=== PATIENT | female | born 1960 | race Caucasian/White ===

== ENCOUNTER 2024-12-22 10:44 | Inpatient (IN) | payer MEDICARE ==
[~2024-12-22] VITALS: Ht 167.6 cm; Wt 70.9 kg
[2024-12-22] VITALS (12 sets, daily range): BP systolic 108; BP diastolic 43; PULSE 85–109; RESP 16–22; TEMP 98.1; O2SAT 88–98
[2024-12-22 11:54] LABS: BASOPHILS # (AUTO) 0.1 X10'3 (0-0.2); EOSINOPHILS # (AUTO) 1.6 X10'3 (0-0.9); EOSINOPHILS % (AUTO) 19.6 % (0-6); HEMATOCRIT 43.8 % (35.0-45.0); HEMOGLOBIN 14.9 g/dl (12.0-16.0); LYMPHOCYTES # (AUTO) 0.8 X10'3 (1.1-4.8); LYMPHOCYTES % (AUTO) 9.3 % (21-51); MEAN CORPUSCULAR HEMOGLOBIN 33.1 PG (27.0-31.0); MEAN CORPUSCULAR VOLUME 97.3 FL (78-98); MEAN PLATELET VOLUME 7.4 FL (7.4-10.4); MONOCYTES # (AUTO) 0.8 X10'3 (0-0.9); MONOCYTES % (AUTO) 10.2 % (2-12); NEUTROPHILS % (AUTO) 59.9 % (42-75); PLATELET COUNT 400 X10'3 (140-440); RED BLOOD COUNT 4.51 X10'6 (4.20-5.60); RED CELL DISTRIBUTION WIDTH 14.1 % (11.5-14.5); WHITE BLOOD COUNT 8.3 X10'3 (4.5-11.0)
[2024-12-22] MEDS: normal saline 1000ml 1,000 ML IV ONE (11:56)
[2024-12-22] MEDS: diphenhydrAMINE 50 mg/ml inj IV ONE (11:58)
[2024-12-22 12:04] LABS: ALANINE AMINOTRANSFERASE 84 U/L (12-78); ALBUMIN 3.4 G/DL (3.4-5.0); ALBUMIN/GLOBULIN RATIO 1.1 (1.1-1.5); ALKALINE PHOSPHATASE 118 IU/L (46-116); ANION GAP 4 (8-16); ASPARTATE AMINO TRANSFERASE 71 U/L (10-37); BILIRUBIN,TOTAL 0.4 MG/DL (0.1-1.0); BLOOD UREA NITROGEN 24 MG/DL (7-18); BUN/CREATININE RATIO 24.5 (10.0-20.0); CALCIUM 8.8 MG/DL (8.5-10.1); CHLORIDE 103 MMOL/L (99-107); CREATININE 0.98 MG/DL (0.40-0.90); GLUCOSE 311 MG/DL (70-104); POTASSIUM 4.5 MMOL/L (3.5-5.1); SODIUM 139 MMOL/L (135-145); TOTAL CARBON DIOXIDE 31.7 MMOL/L (24-32); TOTAL PROTEIN 6.4 G/DL (6.4-8.2); eCRCL 54 ML/MIN; eGFR 57 ML/MIN
[2024-12-22 12:24] LABS: BILIRUBIN,URINE NEGATIVE (Neg); CLARITY,URINE CLEAR (Clear); COLOR,URINE YELLOW (Yellow); GLUCOSE, URINE >=1000 mg/dl (Neg); KETONES,URINE 15 mg/dl (Neg); LEUKOCYTE ESTERASE ,URINE NEGATIVE (Neg); NITRITES, URINE NEGATIVE (Neg); OCCULT BLOOD,URINE NEGATIVE (Neg); PROTEIN,URINE NEGATIVE (Neg); UROBILINOGEN,URINE 0.2 E.U/dL (0.2-1.0)
[2024-12-22 12:29] LABS: UA COLLECTION TYPE VOIDED
[2024-12-22] MEDS ORDERED: LORazepam 2 mg/ml vial IV ONE (12:35)
[2024-12-22 12:38] LABS: MUCUS STRANDS NONE SEEN /LPF (Neg); SQUAMOUS EPITHELIAL CELL,UR MODERATE /LPF (FEW)
[2024-12-22 12:39] LABS: BACTERIA,URINE 1+ /HPF (Neg)
[2024-12-22 12:40] LABS: RBC,URINE NONE SEEN /HPF (0-2); WBC,URINE 0-4 /HPF (0-4)
--- NOTE | 2024-12-22 12:46 | ELECTROCARDIOGRAPH REPORT ---
[facility] Test Date: 2024-12-22 Test Time: 12:44:59 Pat Name: DYAN ARELLANO Department: [facility]- Patient ID: [id number] Room: [place] [address] Gender: F Presentation Team Member: : 1960 Requested By: ALEX DUGAN Order Number: [id number] Reading MD: Dr. Rodo Benjamin Measurements Intervals [place] Rate: 77 P: 74 [place]: 157 QRS: 86 QRSD: 107 T: 73 QT: 410 QTc: 465 Interpretive Statements Sinus rhythm Borderline right axis deviation Probable left ventricular hypertrophy Nonspecific T abnrm, anterolateral leads Electronically Signed On 12-26-2024 9:30:[address] Rodo Benjamin Please click the below link to view image of tracing.
[2024-12-22] MEDS: ipratropium/albuterol 3ml nebule NEB ONE (12:50)
--- NOTE | 2024-12-22 13:11 | RADIOLOGY REPORT ---
CHEST RADIOGRAPH Indication: SOB Technique: Single frontal view of the chest was obtained Comparison: None FINDINGS: The cardiac silhouette is unremarkable. The lungs demonstrate perihilar airspace opacities. The pulmo nary vasculature is prominent. There is no pleural effusion.. There is no pneumothorax. IMPRESSION: 1. As above
[2024-12-22] MEDS: diazepam inj 5 MG/ML inj. IV ONE (13:23)
[2024-12-22] MEDS: methylPREDNISolone sod succ/PF 40mg inj. IV SCH ×2 (13:23→20:21)
[2024-12-22] MEDS ORDERED: ziprasidone IM 20mg inj **IM only IM ONE (13:40)
[2024-12-22] MEDS: albuterol 2.5 MG/3 ML nebule NEB ONE (13:53)
--- NOTE | 2024-12-22 14:26 | Physician Documentation ---
History of Present Illness ~ Chief Complaint: Rash Stated Complaint: RASH Time Seen by MD: 11:06 Primary Medical Doctor: Doctor in [facility] Patient initially presented with a rash but has also been short of breath. He was said that she was had this systemic urticarial rash for a month. It is very pruritic she tried a course of steroids it did not really help the rash much in his increased her blood glucose. She also has a history of COPD. She was had a lot of wheezing recently. She denies chest pain hemoptysis no fever cough. No lower extremity edema. Medication Reconciliation Allergies: Coded Allergies: No Known Allergies (Unverified , 12/22/24) Past Medical History Smoking Status: Current every day smoker Physical Exam Vital Signs: Temperature: 98.1, Source: Oral, Heart Rate: 88, Respiratory Rate: 22, BP: 123/57, Pulse Oximetry: 98, Weight: 70.900 Oxygen Flow Rate: 2.0 Physical Exam General: Awake and Alert, no acute distress. HEENT: Conjunctiva pink, Sclera clear, Mucus Membranes moist. Neck: Supple without masses and tenderness. Resp: Unlabored. Mild wheezing she was very constricted. Heart: Regular Rate and rhythm, normal S1 and S2 without murmur, rub or gallop. Abdomen: Soft and non tender no organomegaly Extremities: No cyanosis,clubbing or edema. Skin: Warm and Dry. Systemic urticaria no signs of anaphylaxis. Neuro: GCS 15; no focal deficits Progress Results/Orders Results/Orders Orders - ALEX DUGAN MD Chest,Single View (12/22/24 12:42) Svn Treatment (12/22/24 12:38) Svn Treatment (12/22/24 13:36) Doxycycline Inj (Vibramycin Inj) (12/22/24 20:00) Cont Nebulizer Treatment (12/22/24 14:19) Albuterol 2.5mg/3ml Nebule (Proventil 2. (12/22/24 14:20) Completed Orders - ALEX DUGAN MD Cbc/Diff (12/22/24 11:23) CMP (12/22/24 11:23) Normal Saline 1000ml (Sodium Chloride 10 (12/22/24 11:25) Diphenhydramine Inj (Benadryl Inj.) (12/22/24 11:25) Ua W/Microscopic, Cult If Ind (12/22/24 11:41) Methylprednisolone Sod Succ/Pf (Solu-Med (12/22/24 12:35) Electrocardiogram (12/22/24 ) Chest,Single View (12/22/24 12:42) Ipratropium/Albuterol Nebule (Ipratrop/A (12/22/24 12:40) Hs Troponin I W Calculations (12/22/24 11:34) Diazepam Inj (Valium Inj) (12/22/24 13:10) Albuterol 2.5mg/3ml Nebule (Proventil 2. (12/22/24 13:40) Medications Received in ER Medications (Trade) Dose Ordered Sig/Pamela Route PRN Reason Start Time Stop Time Status Last Admin Dose Admin Sodium Chloride 1,000 ml @ 1,000 mls/hr ONCE ONCE IV 12/22/24 11:25 12/22/24 12:24 DC 12/22/24 11:56 1,000 MLS/HR (Benadryl inj.) 25 mg ONCE ONCE IV 12/22/24 11:25 12/22/24 11:26 DC 12/22/24 11:58 25 MG (Solu-Medrol 40mg inj.) 125 mg ONCE IV 12/22/24 12:35 12/22/24 14:15 DC 12/22/24 13:23 160 MG (ipratrop/ albuterol 0.5-3(2.5) MG/3ml nebule) 3 ml ONCE ONCE NEB 12/22/24 12:40 12/22/24 12:41 DC 12/22/24 12:50 3 ML (Valium inj) 5 mg ONCE ONCE IV 12/22/24 13:10 12/22/24 13:11 DC 12/22/24 13:23 5 MG (Proventil 2.5 MG/3ML nebule) 5 mg ONCE ONCE NEB 12/22/24 13:40 12/22/24 13:42 DC 12/22/24 13:53 5 MG Vital Signs 12/22/24 12/22/24 12/22/24 12/22/24 11:01 12:51 12:57 13:37 Temp 98.1 Pulse 98 86 99 88 Resp 16 18 18 16 B/P (MAP) 132/58 123/57 (79) Pulse Ox 93 90 98 90 O2 Delivery Room Air* Room Air* O2 Flow Rate 0 0 0 0 FiO2 21 21 12/22/24 12/22/24 12/22/24 13:38 13:54 14:04 Pulse 85 88 Resp 20 22 Pulse Ox 90 93 98 O2 Delivery Nasal Cannula* Nasal Cannula* O2 Flow Rate 2.0 2 2 FiO2 28 28 Laboratory Tests Test 12/22/24 11:34 12/22/24 11:41 White Blood Count 8.3 Red Blood Count 4.51 Hemoglobin 14.9 Hematocrit 43.8 Mean Corpuscular Volume 97.3 Mean Corpuscular Hemoglobin 33.1 H Mean Corpuscular Hemoglobin Concent 34.0 Red Cell Distribution Width 14.1 Platelet Count 400 Mean Platelet Volume 7.4 Neutrophils (%) (Auto) 59.9 Lymphocytes (%) (Auto) 9.3 L Monocytes (%) (Auto) 10.2 Eosinophils (%) (Auto) 19.6 H Basophils (%) (Auto) 1.0 Neutrophils # (Auto) 5.0 Lymphocytes # (Auto) 0.8 L Monocytes # (Auto) 0.8 Eosinophils # (Auto) 1.6 H Basophils # (Auto) 0.1 CBC Comment Sodium Level 139 Potassium Level 4.5 Chloride Level 103 Carbon Dioxide Level 31.7 Anion Gap 4 L Blood Urea Nitrogen 24 H Creatinine 0.98 H Estimated GFR/1.73 m2 57 BUN/Creatinine Ratio 24.5 H Glucose Level 311 H Calcium Level 8.8 Total Bilirubin 0.4 Aspartate Amino Transf (AST/SGOT) 71 H Alanine Aminotransferase (ALT/SGPT) 84 H Alkaline Phosphatase 118 H Troponin I High Sensitivity 26 Total Protein 6.4 Albumin 3.4 Globulin 3.0 Albumin/Globulin Ratio 1.1 Chemistry Comments Urine Specimen Description Voided Urine Color Yellow Urine Clarity Clear Urine pH 6.0 Urine Specific [place] 1.015 Urine Protein Negative Urine Glucose (UA) >=1000 H Urine Ketones 15 H Urine Occult Blood Negative Urine Nitrite Negative Urine Bilirubin Negative Urine Urobilinogen 0.2 Urine Leukocyte Esterase Negative Urine RBC None seen Urine WBC 0-4 Urine Squamous Epithelial Cells Moderate Urine Bacteria 1+ Urine Mucus None seen Urine Culture Indicated Not ind Volume Urine Centrifuged 10 ml Urine Comment Medical Decision Making Findings EKGs interpreted by me shows a sinus rhythm at 77 beats per minute axis intervals and ST segments are normal borderline LVH no ST elevation or depression. Patient has a systemic urticarial rash as he was said intermittently for a month. It was very pruritic and more pronounced today. She he was not aware of any exposures to any allergens. No changes in her medications. She has been a lot of stress recently. She was given IV Benadryl and Solu-Medrol for the rash she was still he was complaining that the rash he was quite pruritic. She was tearful and even anxious so she was given IV Valium. She was also here with shortness of breaths and on exam she was very diminished. She was hypoxic on room air. This was worse after she was received IV Benadryl. He was little bit worse after that after the IV lorazepam. Her wheezing increased after every neb treatment indicating improvement in aeration. She was received a DuoNeb treatment followed by a 5 mg neb treatment. Ordered admission patient he was to receive a 10 mg over long continuous neb treatment prior to admission. Departure Disposition: HOME / SELF CARE / HOMELESS Impression: Primary Impression: Urticaria Additional Impression: COPD exacerbation Condition: Stable Referrals: NO PRIMARY CARE PROVIDER (PCP) Education Educated: Patient Educated regarding: diagnosis, treatment, prognosis, need for follow up Critical Care Note Critical Care Note This patient had a high probability of sudden, clinically significant deterioration, which required the highest level of physician preparedness to intervene urgently. The patient required and I delivered critical care from time of arrival until disposition. Critical care time was separate from procedural such as intubation or central line placement or cardioversion. Critical care included initial assessment of the seriously ill patient, initiation of diagnostic studies and treatment, management of life-threatening and/or end organ supporting interventions that required frequent physician assessment, and phone consultation with other providers as outlined in the progress notes. Spent with family or surrogates is included only if the patient was not capable of providing the necessary information or participating in medical decision-making. Total critical care time: 35 minutes Signature Scribe Signature: no scribe Attestation: no scribALEX Henderson MD Dec 22, 2024 14:26
[2024-12-22] MEDS ORDERED: LEVO50TA8 PO (14:38)
[2024-12-22] MEDS ORDERED: INSU100I8 SQ (14:38)
[2024-12-22] MEDS ORDERED: LISI2.5T14 PO (14:38)
[2024-12-22] MEDS ORDERED: VENL100T4 PO (14:38)
[2024-12-22] MEDS ORDERED: FLUT1BLS4 INH (14:38)
[2024-12-22] MEDS ORDERED: HYDR25TA4 PO (14:38)
[2024-12-22] MEDS ORDERED: LANTUS SQ (14:38)
[2024-12-22] MEDS ORDERED: HYDR-3965 PO (14:38)
[2024-12-22] MEDS: doxycycline inj 100 MG in normal saline 100ml IV soln 100 ML IV SCH (14:51)
[2024-12-22] MEDS: albuterol 2.5 MG/3 ML nebule CONTNEB PRN (15:15)
[2024-12-22] MEDS ORDERED: acetaminophen 325mg tablet PO PRN (15:40)
[2024-12-22] MEDS ORDERED: magnesium sulf-water 4G/100mL 100 ML IV PRN (15:40)
[2024-12-22] MEDS ORDERED: albuterol 2.5 MG/3 ML nebule NEB PRN (15:40)
[2024-12-22] MEDS ORDERED: ondansetron/PF 4mg/2ml inj IV PRN (15:40)
[2024-12-22] MEDS ORDERED: potassium Cl 40MEQ/1/2NS 520ml 520 ML IV PRN (15:40)
[2024-12-22] MEDS ORDERED: magnesium sulf-water 2g/50mL 50 ML IV PRN (15:40)
[2024-12-22] MEDS ORDERED: mag hydrox/Alum hydrox/simeth 30ml oral suspension PO PRN (15:40)
[2024-12-22] MEDS ORDERED: magnesium hydroxide 30ml (MOM) UD suspension PO PRN (15:40)
[2024-12-22] MEDS ORDERED: potassium Cl 20 mEq SR tablet PO PRN ×2 (15:40)
[2024-12-22] MEDS ORDERED: dextrose 50%-water 50ml dispensing syringe IV PRN (16:40)
[2024-12-22] MEDS ORDERED: DEXTROSE 15 GM of carb/4 tabs (each vial/BOTTLE has 4 tablets) PO PRN ×2 (16:40)
[2024-12-22] MEDS ORDERED: glucagon, human recombinant 1mg kit SUBCUT PRN (16:40)
[2024-12-22] MEDS ORDERED: nicotine 21mg patch - 24 hr TD ONE (16:40)
--- NOTE | 2024-12-22 16:49 | HISTORY AND PHYSICAL ---
History & Physical Providers to CC ~ History of Present Illness Reason for Admit\Complaint: COPD exacerbation/ acute respiratory failure History of Present Illness This is a 64-year-old female who presents to the ED with history of COPD not on oxygen at home has noticed she has been more short of breath x3 months however significantly more so over the past few days. Patient has a productive cough as well and intermittent fevers. The patient also states that she has a systemic rash in his itchy and it was taken steroids for the rash without any help and including hydrocortisone cream which made the rash worse and dried her skin out. Allergies: Coded Allergies: No Known Allergies (Unverified , 12/22/24) Home Medications Home Medications Active Reported Trelegy Ellipta 100-62.5-25 (Fluticasone/Umeclidin/Vilanter) 100-62.5 Blst.w.dev 1 Puffs INH DAILY Humalog (Insulin Lispro) 100 Unit/Ml Insuln.pen SQ ACHS Lantus* (Insulin Glargine) 100 Unit/1 Ml Vial SQ [place] 5/325 MG (Acetaminophen/Hydrocodone Bitart) 5 Mg/325 Mg Tablet 1 Tab PO QID PRN Venlafaxine Hcl 100 Mg Tablet 1 Tab PO BID Levothyroxine Sodium 50 Mcg Tablet 1 Tab PO DAILY Hydrochlorothiazide 25 Mg Tablet 1 Tab PO DAILY Lisinopril 2.5 Mg Tablet 1 Tab PO DAILY Past Medical History Past Medical History COPD, diabetes mellitus type 1 Past Surgical History Surgical History Comment Lumbar spine surgery Family History Family History: FH: colon cancer FATHER FH: congestive heart failure MOTHER FH: diabetes mellitus sisters sisters FH: kidney cancer FATHER FH: kidney failure MOTHER Past Social History Social History Comment Smokes at least half a pack of cigarettes a day, does not drink alcohol or use illicit drugs. Full code status, however does not want to remain on life support for an extended period of time ROS ROS Except for positives in the HPI the rest of the 14 point review systems is negative Exam Vitals: Vital Signs Date Time Temp Pulse Resp B/P (MAP) Pulse Ox O2 Delivery O2 Flow Rate FiO2 12/22/24 16:22 107 22 91 12/22/24 16:11 121/56 (77) 0 12/22/24 14:04 Nasal Cannula* 28 12/22/24 11:01 98.1 General: Gen. No acute distress alert and oriented 4 Lungs coarse breath sounds at the bases bilaterally Heart normal sinus rhythm no murmurs rubs or clicks noted Abdomen soft nontender bowel sounds are normoactive Lower extremities no clubbing cyanosis, nor edema appreciated bilaterally Skin faint lacy erythematous rash diffusely scattered most prominent on her back Diagnostic Data Last Recorded Lab Results: 12/22/24 1134 12/22/24 1134 Counseling Services Smoking & Tobacco Cessation: > 10 Minutes Advance Care Planning Advanced Care plannin - 30 Minutes Problems: (1) COPD exacerbation Status: Acute Additional Plan # acute exacerbation of chronic COPD- IV Solu-Medrol, scheduled DuoNeb and p.r.n. albuterol nebs as well as scheduled budesonide neb and an incentive spirometer and a PEP with oscillitation, doxycycline p.o. # acute respiratory failure- secondary to COPD respiratory therapies ordered and keep SaO2 above 88% # insulin-dependent diabetes mellitus- hemoglobin A1c is ordered, insulin glargine and a sliding scale insulin is ordered # systemic rash possibly secondary to urticaria- I started the patient on Singulair I have recommended the patient follow up and get a biopsy in the outpatient setting since his rash has been going on for months. # Tobacco abuse-I spent 12 minutes discussing smoking cessation with the patient including the risk of continuing smoke: Lung cancer, stroke, heart attack, poor wound healing, increased in facial wrinkling, cigarette smoke also leads a foul smell on clothing and fabrics, risk of MRSA skin infections. The expense of smoking cigarettes and how cigarettes have been scientifically engineered to be as addictive as humanly possible. The patient has accepted a 21 mg nicotine patch. # DVT prophylaxis SCDs and SQ Lovenox I spent a total of 18 minutes on reviewing various resuscitative measures/ ACP with the patient at the time of admission. The patient has decided on a full code status however does not want to remain on life support for an extended period of time. Date of Service: Dec 22, 2024 Billing Provider: TOBY PINA DO Common Visit Codes: [id number] INP/OBS CARE (HIGH) Secondary Visit Codes: [id number] CARE PLAN 30 MINUTES TOBY PINA DO Dec 22, 2024 16:49
--- NOTE | 2024-12-22 16:50 | Visit Coding Note ---
Date of Service: Dec 22, 2024 Billing Provider: TOBY PINA DO Common Visit Codes: [id number] INP/OBS CARE (HIGH) Secondary Visit Codes: [id number] CHNG SMOKING >10MIN, [id number] CARE PLAN 30 MINUTES TOBY PINA DO Dec 22, 2024 16:50
[2024-12-22 17:10] LABS: HEMOGLOBIN A1C 8.5 % (4.5-6.2)
[2024-12-22] MEDS: normal saline 1000ml 1,000 ML IV SCH (17:15)
[2024-12-22] MEDS: nicotine 21mg patch - 24 hr TD ONE (17:16)
[2024-12-22] MEDS: INSULIN LISPRO 100 UNIT/ML INSULN.PEN MULTI-DOSE SQ SCH (18:25)
[2024-12-22] MEDS: budesonide 0.5mg/2ml UD nebule IH SCH (19:43)
[2024-12-22] MEDS: ipratropium/albuterol 3ml nebule NEB SCH (19:44)
[2024-12-22] MEDS: K and/or MAG REPLACEMENT MC SCH (20:00)
[2024-12-22] MEDS ORDERED: doxycycline inj 100 MG in normal saline 100ml IV soln 100 ML IV SCH (20:00)
[2024-12-22] MEDS: DOXYCYCLINE 100MG CAPSULE PO SCH (20:20)
[2024-12-22] MEDS: docusate sod 100mg capsule PO SCH (20:20)
[2024-12-22] MEDS: enoxaparin 40mg/0.4ml syringe SQ SCH (20:21)
[2024-12-22] MEDS ORDERED: insulin glargine (Lantus) pen - multi-dose SQ SCH (21:00)
[2024-12-22] MEDS: insulin glargine (Lantus) pen - multi-dose SQ SCH (21:56)
[2024-12-22] MEDS: diphenhydrAMINE 25mg capsule PO PRN (22:24)
[2024-12-22] MEDS: insulin Lispro (HumaLOG) vial - multi-dose SQ ONE (22:26)
[2024-12-23] VITALS (17 sets, daily range): BP systolic 114–147; BP diastolic 45–65; PULSE 60–98; RESP 14–20; TEMP 97.9–98.7; O2SAT 93–99
[2024-12-23] MEDS: hydrocortisone 1% cream 28gm TP SCH (00:03)
[2024-12-23 05:50] LABS: BASOPHILS % (AUTO) 0.3 % (0-1); EOSINOPHILS % (AUTO) 0 % (0-6); HEMATOCRIT 40.6 % (35.0-45.0); HEMOGLOBIN 13.5 g/dl (12.0-16.0); LYMPHOCYTES # (AUTO) 0.7 X10'3 (1.1-4.8); LYMPHOCYTES % (AUTO) 6.2 % (21-51); MEAN CORPUSCULAR HEMOGLOBIN 32.3 PG (27.0-31.0); MEAN CORPUSCULAR HGB CONC 33.2 g/dL (33.0-36.5); MEAN CORPUSCULAR VOLUME 97.3 FL (78-98); MEAN PLATELET VOLUME 8.2 FL (7.4-10.4); MONOCYTES # (AUTO) 0.5 X10'3 (0-0.9); MONOCYTES % (AUTO) 4.8 % (2-12); NEUTROPHILS # (AUTO) 10.1 X10'3 (1.8-7.7); NEUTROPHILS % (AUTO) 88.7 % (42-75); PLATELET COUNT 393 X10'3 (140-440); RED BLOOD COUNT 4.18 X10'6 (4.20-5.60); RED CELL DISTRIBUTION WIDTH 14.3 % (11.5-14.5); WHITE BLOOD COUNT 11.3 X10'3 (4.5-11.0)
[2024-12-23 06:03] LABS: ALANINE AMINOTRANSFERASE 72 U/L (12-78); ALBUMIN 3.2 G/DL (3.4-5.0); ALBUMIN/GLOBULIN RATIO 1.1 (1.1-1.5); ALKALINE PHOSPHATASE 89 IU/L (46-116); ANION GAP 5 (8-16); ASPARTATE AMINO TRANSFERASE 40 U/L (10-37); BILIRUBIN,TOTAL 0.4 MG/DL (0.1-1.0); BLOOD UREA NITROGEN 26 MG/DL (7-18); BUN/CREATININE RATIO 28.6 (10.0-20.0); CALCIUM 8.3 MG/DL (8.5-10.1); CHLORIDE 103 MMOL/L (99-107); CREATININE 0.91 MG/DL (0.40-0.90); GLUCOSE 302 MG/DL (70-104); POTASSIUM 4.4 MMOL/L (3.5-5.1); SODIUM 139 MMOL/L (135-145); TOTAL CARBON DIOXIDE 31.4 MMOL/L (24-32); TOTAL PROTEIN 6.1 G/DL (6.4-8.2); eCRCL 58 ML/MIN; eGFR 62 ML/MIN
[2024-12-23] MEDS: montelukast 10mg tablet PO SCH (09:19)
[2024-12-23] MEDS: INSULIN LISPRO 100 UNIT/ML INSULN.PEN MULTI-DOSE SQ SCH ×2 (09:22→11:24)
[2024-12-23] MEDS ORDERED: hydrOXYzine 25 MG tablet PO PRN (11:25)
[2024-12-23] MEDS: dextrose 50%-water 50ml dispensing syringe IV PRN (12:30)
[2024-12-23] MEDS ORDERED: INSULIN LISPRO 100 UNIT/ML INSULN.PEN MULTI-DOSE SQ SCH (13:00)
--- NOTE | 2024-12-23 18:27 | PROGRESS NOTE ---
Daily Progress Note Providers to CC ~ Antibiotic Timeout Antibiotic Ordered?: Yes Subjective The patient's respiratory status has improved significantly and by this afternoon the patient has been titrated off of oxygen, the patient had significantly elevated blood glucose this morning and I have markedly increased her sliding scale and increased her PC insulin to 12 units which the patient became hypoglycemic prior to lunch thus I have back down to 7 units PC. The patient has no other complaints Objective Vital Signs Date Time Temp Pulse Resp B/P (MAP) Pulse Ox O2 Delivery O2 Flow Rate FiO2 12/23/24 14:39 90 18 Room Air 0.0 12/23/24 14:29 93 21 12/23/24 11:47 114/45 (68) 12/23/24 06:00 98.7 Result Diagram: 12/23/2443112/23/24431 Gen. No acute distress alert and oriented 4 Lungs clear to ascultation bilaterally, no wheezes rales or rhonchi appreciated Heart normal sinus rhythm no murmurs rubs or clicks noted Abdomen soft nontender bowel sounds are normoactive Lower extremities no clubbing cyanosis, nor edema appreciated bilaterally Problem\Assessment\Plan Problems/Diagnosis: (1) COPD exacerbation # acute exacerbation of chronic COPD- IV Solu-Medrol, scheduled DuoNeb and p.r.n. albuterol nebs as well as scheduled budesonide neb and an incentive spirometer and a PEP with oscillitation, doxycycline p.o. 12/23 significantly improved anticipate discharge in the a.m. # acute respiratory failure- secondary to COPD respiratory therapies ordered and keep SaO2 above 88% 12/23 titrated off of oxygen this afternoon # insulin-dependent diabetes mellitus- hemoglobin A1c is ordered, insulin glargine and a sliding scale insulin is ordered 12/23 were dying in the patient's insulin I have markedly increased the patient was sliding scale however the patient became hypoglycemic after receiving a PC insulin after breakfast which I had increased her PC dosing to 12 units a.c. and HS now I have back down to 7 units. # systemic rash possibly secondary to urticaria- I started the patient on Singulair I have recommended the patient follow up and get a biopsy in the outpatient setting since his rash has been going on for months. # Tobacco abuse-I spent 12 minutes discussing smoking cessation with the patient including the risk of continuing smoke: Lung cancer, stroke, heart attack, poor wound healing, increased in facial wrinkling, cigarette smoke also leads a foul smell on clothing and fabrics, risk of MRSA skin infections. The expense of smoking cigarettes and how cigarettes have been scientifically engineered to be as addictive as humanly possible. The patient has accepted a 21 mg nicotine patch. # DVT prophylaxis SCDs and SQ Lovenox Disposition: Anticipate discharge in the a.m. Date of Service: Dec 23, 2024 Billing Provider: TOBY PINA DO Common Visit Codes: [id number] INP/OBS CARE(HIGH) TOBY PINA DO Dec 23, 2024 18:27
[2024-12-23] MEDS: venlafaxine 25mg tablet PO SCH (21:35)
[2024-12-23] MEDS: temazepam 15mg capsule PO PRN (21:56)
[2024-12-24] VITALS (9 sets, daily range): BP systolic 150–151; BP diastolic 69–72; PULSE 74–88; RESP 16–24; TEMP 98.1–98.4; O2SAT 94–98
[2024-12-24 06:34] LABS: BASOPHILS % (AUTO) 0.2 % (0-1); EOSINOPHILS % (AUTO) 0 % (0-6); HEMATOCRIT 39.6 % (35.0-45.0); HEMOGLOBIN 12.9 g/dl (12.0-16.0); LYMPHOCYTES # (AUTO) 1.3 X10'3 (1.1-4.8); LYMPHOCYTES % (AUTO) 8.2 % (21-51); MEAN CORPUSCULAR HEMOGLOBIN 31.9 PG (27.0-31.0); MEAN CORPUSCULAR HGB CONC 32.5 g/dL (33.0-36.5); MEAN CORPUSCULAR VOLUME 98.3 FL (78-98); MONOCYTES # (AUTO) 0.9 X10'3 (0-0.9); MONOCYTES % (AUTO) 5.5 % (2-12); NEUTROPHILS # (AUTO) 13.6 X10'3 (1.8-7.7); NEUTROPHILS % (AUTO) 86.1 % (42-75); PLATELET COUNT 385 X10'3 (140-440); RED BLOOD COUNT 4.03 X10'6 (4.20-5.60); RED CELL DISTRIBUTION WIDTH 14.7 % (11.5-14.5); WHITE BLOOD COUNT 15.9 X10'3 (4.5-11.0)
[2024-12-24 06:56] LABS: ALANINE AMINOTRANSFERASE 135 U/L (12-78); ALBUMIN 2.9 G/DL (3.4-5.0); ALKALINE PHOSPHATASE 92 IU/L (46-116); ANION GAP 6 (8-16); ASPARTATE AMINO TRANSFERASE 126 U/L (10-37); BILIRUBIN,TOTAL 0.4 MG/DL (0.1-1.0); BLOOD UREA NITROGEN 30 MG/DL (7-18); BUN/CREATININE RATIO 44.8 (10.0-20.0); CALCIUM 8.1 MG/DL (8.5-10.1); CHLORIDE 105 MMOL/L (99-107); CREATININE 0.67 MG/DL (0.40-0.90); GLUCOSE 284 MG/DL (70-104); MAGNESIUM 2.2 MG/DL (1.5-2.4); SODIUM 141 MMOL/L (135-145); TOTAL CARBON DIOXIDE 29.8 MMOL/L (24-32); TOTAL PROTEIN 5.7 G/DL (6.4-8.2); eCRCL 78 ML/MIN; eGFR 88 ML/MIN
[2024-12-24] MEDS: levoTHYROXINE 25mcg tablet PO SCH (08:14)
[2024-12-24] MEDS: lisinopril 2.5mg tablet PO SCH (08:15)
[2024-12-24] MEDS ORDERED: PRED20TA PO (11:11)
[2024-12-24] MEDS ORDERED: MONT-40 PO (11:11)
[2024-12-24] MEDS ORDERED: VENL100T4 PO (11:11)
[2024-12-24] MEDS ORDERED: FLUT1BLS4 INH (11:11)
[2024-12-24] MEDS ORDERED: LEVO50TA8 PO (11:11)
[2024-12-24] MEDS ORDERED: HYDR25TA4 PO (11:11)
[2024-12-24] MEDS ORDERED: LISI2.5T14 PO (11:11)
[2024-12-24] MEDS ORDERED: TEMA15CA5 PO (11:11)
[2024-12-24] MEDS ORDERED: DOXY-224 PO (11:11)
[2024-12-24] MEDS: INSULIN LISPRO 100 UNIT/ML INSULN.PEN MULTI-DOSE SQ ONE ×2 (12:28→13:50)
[2024-12-24] MEDS ORDERED: INSULIN LISPRO 100 UNIT/ML INSULN.PEN MULTI-DOSE SQ ONE (13:56)
[2024-12-24] MEDS ORDERED: NICO1PAT36 TOP (19:51)
--- NOTE | 2024-12-24 19:56 | DISCHARGE SUMMARY ---
Discharge Summary Providers to CC ~ Discharge Summary Admission Diagnosis: COPD exacerbation with a acute respiratory failure Hospital Course DATE OF ADMISSION: 12/22/2024 DATE OF DISCHARGE: 12/24/2024 Discharge Diagnosis\Comment: Acute exacerbation of chronic COPD, acute respiratory failure, insulin-dependent diabetes mellitus, urticaria, tobacco use disorder Operations\Procedures: None Consultants: None Complications: None Condition on DC: Stable New Medications: Prednisone* (Prednisone*) 20 Mg Tablet 2 TAB PO DAILY, #15 TAB 2 tabs daily x 5 days - then 1 tab daily x 5 days Doxycycline Hyclate (Doxycycline Hyclate) 100 Mg Capsule 100 MG PO BID, #8 CAP Montelukast Sodium (Montelukast Sodium) 10 Mg Tablet 10 MG PO DAILY, #30 TAB Temazepam (Restoril) 15 Mg Capsule 15 MG PO HS PRN for sleep, #30 CAP Continued Medications: Fluticasone/Umeclidin/Vilanter (Trelegy Ellipta 100-62.5-25) 100-62.5 Blst.w.dev 1 PUFFS INH DAILY, #1 INHALER (This prescription has been renewed) Hydrochlorothiazide (Hydrochlorothiazide) 25 Mg Tablet 1 TAB PO DAILY, #30 TAB (This prescription has been renewed) Hydrocodone Bit/Acetaminophen 5/325 MG ([place] 5/325 MG) 5 Mg/325 Mg Tablet 1 TAB PO QID PRN for pain Insulin Glargine,Hum.rec.anlog* (Lantus*) 100 Unit/1 Ml Vial SQ Insulin Lispro (Humalog) 100 Unit/Ml Insuln.pen SQ ACHS Levothyroxine Sodium (Levothyroxine Sodium) 50 Mcg Tablet 1 TAB PO DAILY, #30 TAB (This prescription has been renewed) Lisinopril (Lisinopril) 2.5 Mg Tablet 1 TAB PO DAILY, #30 TAB (This prescription has been renewed) Venlafaxine Hcl (Venlafaxine Hcl) 100 Mg Tablet 1 TAB PO BID, #60 TAB (This prescription has been renewed) Discharge Summary: I admitted the patient with the following HPI:This is a 64-year-old female who presents to the ED with history of COPD not on oxygen at home has noticed she has been more short of breath x3 months however significantly more so over the past few days. Patient has a productive cough as well and intermittent fevers. The patient also states that she has a systemic rash in his itchy and it was taken steroids for the rash without any help and including hydrocortisone cream which made the rash worse and dried her skin out. The patient was breathing did improve with IV Solu-Medrol and nebulizer treatments as well as p.o. doxycycline I also started the patient on Singulair for her urticaria rash- The patient did require oxygen however for discharge and the patient qualified for oxygen. Patient has a insulin-dependent diabetes mellitus and was a brittle diabetic her blood sugars were significantly more uncontrolled due to steroid use- patient was blood sugars spiked on the day of admission to 464 and then started to improve I significantly increased the amount of units in the sliding scale and by midmorning patient's blood sugar on the was 120 however she did not receive any more insulin and an dropped her sugar 244 and the patient received g lucose which then her blood sugar did improve however by the mid afternoon was in the 260s and increased to 340 on the evening of the the patient received her home dose of Lantus in the morning was blood sugar was 334 this then increased to 394 and the patient received 21 units of short-acting insulin there was slight increased to 422 the patient received another 15 units her blood glucose then downtrended to 370 followed by 290 I had ordered 12 units of insulin the patient was concerned she would usually only give 6 units of insulin for this blood glucose level thus we decided on 9 units and the patient went home and was able to be discharged. I did talk with the patient about smoking cessation on the day discharge and I just sent a prescription for nicotine patch I did recommend the patient do not smoke while on a nicotine patch as this could cause her to have a significant e levated blood pressure and she could have a stroke. Gen. No acute distress alert and oriented 4 Lungs clear to ascultation bilaterally, no wheezes rales or rhonchi appreciated Heart normal sinus rhythm no murmurs rubs or clicks noted Abdomen soft nontender bowel sounds are normoactive Lower extremities no clubbing cyanosis, nor edema appreciated bilaterally The patient felt ready to be discharged and was medically cleared to be discharged on 12/24/2024 The patient was seen and evaluated on day of discharge. Time spent on discharge 40 minutes *Problems/Diagnosis: (1) COPD exacerbation Status: Acute Total Time Spent on D/C: > 30 Minutes Date of Service: Dec 24, 2024 Billing Provider: TOBY PINA DO Common Visit Codes: [id number]-WXC/OBS DISCH DAY >30min TOBY PINA DO Dec 24, 2024 19:52
== END 2024-12-24 14:18 | disposition home or self-care (01) | DRG 189 ==
LOC: ER 10:45 → ED HOLD 15:46 → EDBEDREQ 16:28 → ORTHO 4S 16:50
PROVIDERS: ADMIT Family Medicine; ATTEND Family Medicine
DX: J96.00 Acute respiratory failure, unspecified whether with hypoxia or hypercapnia (principal); J44.1 Chronic obstructive pulmonary disease with (acute) exacerbation; L50.9 Urticaria, unspecified; E10.649 Type 1 diabetes mellitus with hypoglycemia without coma; F17.210 Nicotine dependence, cigarettes, uncomplicated; T38.0X5A Adverse effect of glucocorticoids and synthetic analogues, initial encounter; Z79.4 Long term (current) use of insulin; Z79.899 Other long term (current) drug therapy; Z80.0 Family history of malignant neoplasm of digestive organs; Z80.51 Family history of malignant neoplasm of kidney; Z82.49 Family history of ischemic heart disease and other diseases of the circulatory system; Z83.3 Family history of diabetes mellitus; Z84.1 Family history of disorders of kidney and ureter; Y92.89 Other specified places as the place of occurrence of the external cause
CPT/HCPCS: 36415; 71045; 80053; 81001; 82948; 83036; 83735; 84484; 85025; 87081; 93005; 94640; 94664; 94668; 94760; 99291; A4615; A7015; G0378; J1200; J1650; J1815; J2919; J3360; J3490; J7030; Q0163

== ENCOUNTER 2024-12-30 15:56 | Emergency (ER) | payer MEDICARE ==
[~2024-12-30] VITALS: Ht 167.6 cm; Wt 71.8 kg
[~2024-12-30 15:56] MED LIST: DOXY-224 PO; FLUT1BLS4 INH; HYDR-3965 PO; HYDR25TA4 PO; INSU100I8 SQ; LANTUS SQ; LEVO50TA8 PO; LISI2.5T14 PO; MONT-40 PO; NICO1PAT36 TOP; PRED20TA PO; TEMA15CA5 PO; VENL100T4 PO
[2024-12-30 16:22] LABS: BASOPHILS # (AUTO) 0.1 X10'3 (0-0.2); BASOPHILS % (AUTO) 0.6 % (0-1); EOSINOPHILS # (AUTO) 2.6 X10'3 (0-0.9); EOSINOPHILS % (AUTO) 24.3 % (0-6); HEMATOCRIT 43.6 % (35.0-45.0); HEMOGLOBIN 14.5 g/dl (12.0-16.0); LYMPHOCYTES % (AUTO) 9.5 % (21-51); MEAN CORPUSCULAR HEMOGLOBIN 32.4 PG (27.0-31.0); MEAN CORPUSCULAR HGB CONC 33.2 g/dL (33.0-36.5); MEAN CORPUSCULAR VOLUME 97.5 FL (78-98); MEAN PLATELET VOLUME 7.5 FL (7.4-10.4); MONOCYTES # (AUTO) 1.3 X10'3 (0-0.9); MONOCYTES % (AUTO) 11.8 % (2-12); NEUTROPHILS # (AUTO) 5.9 X10'3 (1.8-7.7); NEUTROPHILS % (AUTO) 53.8 % (42-75); PLATELET COUNT 453 X10'3 (140-440); RED BLOOD COUNT 4.47 X10'6 (4.20-5.60); RED CELL DISTRIBUTION WIDTH 14.3 % (11.5-14.5); WHITE BLOOD COUNT 10.9 X10'3 (4.5-11.0)
[2024-12-30 16:45] LABS: ALANINE AMINOTRANSFERASE 56 U/L (12-78); ALKALINE PHOSPHATASE 100 IU/L (46-116); ANION GAP 4 (8-16); ASPARTATE AMINO TRANSFERASE 24 U/L (10-37); BILIRUBIN,TOTAL 0.2 MG/DL (0.1-1.0); BLOOD UREA NITROGEN 29 MG/DL (7-18); BUN/CREATININE RATIO 30.9 (10.0-20.0); CALCIUM 9.3 MG/DL (8.5-10.1); CHLORIDE 102 MMOL/L (99-107); CREATININE 0.94 MG/DL (0.40-0.90); GLUCOSE 111 MG/DL (70-104); POTASSIUM 4.9 MMOL/L (3.5-5.1); SODIUM 141 MMOL/L (135-145); TOTAL PROTEIN 6.1 G/DL (6.4-8.2); eCRCL 56 ML/MIN; eGFR 60 ML/MIN
[2024-12-30] MEDS: normal saline 1000ml 1,000 ML IV ONE (18:55)
[2024-12-30] MEDS: diphenhydrAMINE 50 mg/ml inj IV ONE (19:07)
[2024-12-30 19:54] LABS: BILIRUBIN,URINE NEGATIVE (Neg); CLARITY,URINE CLEAR (Clear); COLOR,URINE YELLOW (Yellow); GLUCOSE, URINE NEGATIVE (Neg); KETONES,URINE 15 mg/dl (Neg); LEUKOCYTE ESTERASE ,URINE NEGATIVE (Neg); NITRITES, URINE NEGATIVE (Neg); OCCULT BLOOD,URINE NEGATIVE (Neg); PROTEIN,URINE NEGATIVE (Neg); UROBILINOGEN,URINE 0.2 E.U/dL (0.2-1.0)
[2024-12-30 20:00] LABS: UA COLLECTION TYPE CLN CATCH MIDSTREAM
[2024-12-30 20:15] VITALS: BP 140/78; PULSE 87; RESP 19; TEMP 98.4; O2SAT 100
== END 2024-12-30 20:22 | disposition home or self-care (01) ==
LOC: ER 15:57
DX: L50.9 Urticaria, unspecified (principal); E86.0 Dehydration; E10.9 Type 1 diabetes mellitus without complications; Z79.4 Long term (current) use of insulin
CPT/HCPCS: 80053; 81003; 82948; 85025; 96361; 96374; 99283; J1200; J7030; A4615